=== PATIENT | female | born 1990 | race Caucasian/White ===

== ENCOUNTER 2018-01-30 13:00 | Outpatient (CLI) | payer OTHER, BC ==
--- NOTE | 2018-01-31 15:07 | MRI Report ---
Reason: KNEE PAIN, LEFT Procedure Date: 01/30/2018 Accession Number: [id number] / [id number] Procedure: MRI - Knee LT W/O CPT Code: FULL RESULT: EXAM: LEFT KNEE MRI WITHOUT CONTRAST EXAM DATE: 01/30/2018 01:58 PM. CLINICAL HISTORY: Knee pain, left. COMPARISON: None. TECHNIQUE: Multiplanar, multisequence T1-weighted and fluid-sensitive sequences of the knee without contrast. Other: None. FINDINGS: Cruciate ligaments: The anterior and posterior cruciate ligaments appear intact. Medial meniscus: Intact. No tear is identified. Lateral meniscus: Intact. No tear is identified. Collateral ligaments: The medial and fibular collateral lumens appear intact. Bones and articular surfaces: Bipartite patella. Small amount of marrow edema adjacent to the synchondrosis. No significant articular cartilage defects. No significant joint effusion. Extensor mechanism: The patellar tendon and quadriceps insertion appear intact. IMPRESSION: 1. 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 [facility] MUSCULOSKELETAL RADIOLOGY SECTION
== END 2018-01-30 13:01 | disposition home or self-care (01) ==
LOC: DI 13:00
PROVIDERS: ATTEND Family Medicine
DX: M25.562 Pain in left knee (principal); Q74.1 Congenital malformation of knee

== ENCOUNTER 2018-06-05 08:00 | Outpatient (CLI) | payer BC, OTHER | END 2018-06-05 23:59 | disposition home or self-care (01) | LOC: LAB.R 08:00 | PROVIDERS: ATTEND Registered Nurse | DX: N76.0 Acute vaginitis (principal) | CPT/HCPCS: 87491; 87591 ==

== ENCOUNTER 2018-09-16 08:00 | Outpatient (CLI) | payer BC, OTHER ==
[2018-09-16 21:51] LABS: TRICHOMONAS VAGINALIS DNA NEGATIVE (NEGATIVE)
== END 2018-09-16 23:59 | disposition home or self-care (01) ==
LOC: LAB.R 08:00
PROVIDERS: ATTEND Obstetrics & Gynecology
DX: Z11.3 Encounter for screening for infections with a predominantly sexual mode of transmission (principal)
CPT/HCPCS: 87491; 87591; 87661